=== PATIENT | male | born 1955 | race Caucasian/White ===

== ENCOUNTER → 2016-11-25 | Outpatient (CLI) | payer OTHER ==
--- NOTE | ~2016-11-25 | CR7 ---
[facility] A Service of [facility] & [facility] / [facility] RADIOLOGY TEXT RESULTS PATIENT: ANNABELLE GOODMAN LOCATION: [facility] : 53 UNIT #: [id number] AGE: [address]: Gavino Call MD SEX: M ORDER DR: [id number] [facility] [address] [place], [place] [address] [id number] O MR#: [id number] Acc #: [id number] NAME: ANNABELLE GOODMAN : 1955 SEX: M STUDY DATE/TIME: 11/25/2016 10:34 UNIT: [facility] ROOM: STUDY DESCRIPTION: CR Abdomen Single AP View Attending Physician: Gavino Call M.D. Ordering Physician: Gavino Call M.D. Primary Care Physician: Chon Weeks M.D. MEDICAL IMAGING REPORT This report is preliminary unless electronic signature is present EXAM KUB. INDICATION Flank pain on right side. Patient has a history of kidney stones and prior double-J ureteral stent. COMPARISON Comparison made to prior study from 09/25/2013. FINDINGS Previously identified double-J ureteral stent has been removed. Patient does appear to have a punctate stone within the inferior pole of the left kidney. I am not convinced I can see any additional renal stones. Multiple phleboliths are seen within the pelvis. IMPRESSION Interval removal of previously identified double-J ureteral stent. Patient does appear to have a punctate stone within the inferior pole of the left kidney. I am not convinced I can see any additional stones. Dictated by... Soniya George M.D. THIS IS AN ELECTRONICALLY VERIFIED REPORT Soniya George M.D. at 11/25/2016 6:30 PM AFF/gz TD: 11/25/2016 13:58 JOB #: [id number] MEDICAL IMAGING REPORT Page 1 of 1 COPY
== END | disposition home or self-care (01) ==
LOC: CRAD 10:29
DX: N20.0 Calculus of kidney (principal)
CPT/HCPCS: 74000

== ENCOUNTER → 2016-12-22 | Outpatient (CLI) | payer OTHER ==
--- NOTE | ~2016-12-22 | CR63 ---
[facility] A Service of [facility] & [facility] RADIOLOGY TEXT RESULTS PATIENT: ANNABELLE GOODMAN LOCATION: [facility] : 53 UNIT #: [id number] AGE: [address]: Gavino Call MD SEX: M ORDER DR: [id number] [facility] [address] [place], [place] [address] [id number] O MR#: [id number] Acc #: [id number] NAME: ANNABELLE GOODMAN : 1955 SEX: M STUDY DATE/TIME: 12/22/2016 10:38 UNIT: [facility] ROOM: STUDY DESCRIPTION: CR Chest 2 View Attending Physician: Gavino Call M.D. Referring Physician: Gavino Call M.D. Ordering Physician: Gavino Call M.D. Primary Care Physician: Chon Weeks M.D. MEDICAL IMAGING REPORT This report is preliminary unless electronic signature is present EXAM Two-view chest INDICATION Shortness of air today. PROCEDURE Frontal and lateral views of the chest. COMPARISON None FINDINGS Heart size normal. No dense consolidation, effusion or pneumothorax. IMPRESSION No active process. Dictated by... Immanuel George M.D. THIS IS AN ELECTRONICALLY VERIFIED REPORT Immanuel George M.D. at 12/23/2016 7:21 AM Esau TD: 12/22/2016 13:24 JOB #: [id number] MEDICAL IMAGING REPORT Page 1 of 1 COPY
== END | disposition home or self-care (01) ==
LOC: CRAD 10:25
DX: N20.0 Calculus of kidney (principal); R06.02 Shortness of breath
CPT/HCPCS: 71020